=== PATIENT | female | born 1985 | race Caucasian/White ===

== ENCOUNTER 2016-10-09 15:34 | Inpatient (IN) | payer OTHER ==
[~2016-10-09] VITALS: Ht 180.3 cm; Wt 86.8 kg
[2016-11-04] VITALS (27 sets, daily range): BP systolic 104–156; BP diastolic 56–74; PULSE 63–99; TEMP 97.4–98.4
[2016-11-04] MEDS ORDERED: PRENATAL (10:02)
[2016-11-04 10:42] LABS: BASO % 0.2 % (0.0-2.0); EOS # 0.1 (0.0-0.7); EOS % 0.6 % (0-4.0); GRAN # 6.6 (1.4-6.5); GRAN % 72.1 % (42.2-75.2); HEMOGLOBIN 12.4 g/dl (12.5-16.0); LYMPH # 1.7 (1.2-3.4); LYMPH % 18.7 % (20.0-51.0); MEAN CELL VOLUME 92 fl (80.0-100.0); MEAN CORPUSCULAR HEMOGLOBIN 32 pg (27.0-31.0); MEAN CORPUSCULAR HGB CONC 34 g/dl (33.0-37.0); MEAN PLATELET VOLUME 10.1 fl (7.4-10.4); MONO # 0.7 (0.1-0.6); MONO % 7.4 % (1.7-9.3); PLATELET COUNT 120 K/mm3 (130-400); REDCELL DISTRIBUTION WIDTH-CV 13.9 % (11.5-14.5); WHITE BLOOD COUNT 9.1 K/mm3 (4.8-10.8)
[2016-11-05 02:50] VITALS: BP 97/64; PULSE 74; TEMP 97.7
[2016-11-05] MEDS ORDERED: IBU800 M1 PO (12:54)
[2016-11-05 15:27] VITALS: BP 100/57; PULSE 85; TEMP 98.7
[2016-11-05 21:35] VITALS: BP 106/64; PULSE 72; TEMP 97.7
[2016-11-06 08:10] VITALS: BP 129/67; PULSE 99; TEMP 97.7
[2016-11-06 15:00] VITALS: BP 100/70; PULSE 84; TEMP 98
== END 2016-11-06 15:10 | disposition home or self-care (01) | DRG 775 ==
LOC: LDR 11-04 06:43 → OB 11-04 09:28 → EDSTATUS 11-08 06:41 → LDRO 11-08 15:34
PROVIDERS: Student in an Organized Health Care Education/Training Program
PROC: 10E0XZZ Delivery of Products of Conception, External Approach (ICD-10-PCS; principal; 2016-11-04)
PROC: 3E033VJ Introduction of Other Hormone into Peripheral Vein, Percutaneous Approach (ICD-10-PCS; 2016-11-04)
PROC: 0HQ9XZZ Repair Perineum Skin, External Approach (ICD-10-PCS; 2016-11-04)
DX: O36.63X0 Maternal care for excessive fetal growth, third trimester, not applicable or unspecified (principal); O70.0 First degree perineal laceration during delivery; Z3A.39 39 weeks gestation of pregnancy; Z37.0 Single live birth
CPT/HCPCS: J2590; J2795; J7120

== ENCOUNTER → 2016-11-09 | Outpatient (CLI) | payer OTHER ==
[~2016-11-09] MED LIST: DYNAPEN 250MG250 MG PO; IBU800 M1 PO; PRENATAL
== END ==
LOC: OLC 11:27
DX: Z39.1 Encounter for care and examination of lactating mother (principal); Z71.89 Other specified counseling

== ENCOUNTER → 2016-12-18 | Outpatient (CLI) | payer OTHER | LOC: OLC 09:27 | DX: Z39.1 Encounter for care and examination of lactating mother (principal); Z71.89 Other specified counseling ==

== ENCOUNTER 2017-02-06 08:33 | Emergency (ER) | payer OTHER ==
[~2017-02-06] VITALS: Ht 180.3 cm; Wt 70.5 kg
[~2017-02-06 08:33] MED LIST changes: -DYNAPEN 250MG250 MG PO
[2017-02-06 08:39] VITALS: BP 125/76; PULSE 75; TEMP 98.4
[2017-02-06] MEDS ORDERED: DYNAPEN 250MG250 MG PO (08:44)
== END 2017-02-06 11:24 | disposition home or self-care (01) ==
LOC: COL.ER 08:33
DX: N64.4 Mastodynia (principal); N61.0 Mastitis without abscess